=== PATIENT | female | born 1990 | race Caucasian/White ===

== ENCOUNTER 2017-02-06 06:56 | Emergency (ER) | payer OTHER ==
[2017-02-06 07:05] VITALS: BMI 18.7
[2017-02-06 08:38] LABS: URINE APPEARANCE CLOUDY; URINE BILIRUBIN NEGATIVE (NEGATIVE); URINE COLOR YELLOW; URINE GLUCOSE (UA) NEGATIVE (NEGATIVE); URINE KETONE NEGATIVE (NEGATIVE); URINE NITRITE NEGATIVE (NEGATIVE); URINE UROBILINOGEN NEGATIVE E.U./dl (0.2-1.0)
--- NOTE | 2017-02-06 08:38 | PDOC ---
History of Present Illness - General History Source: Patient Exam Limitations: No Limitations - History of Present Illness Initial Comments: 02/06/17 08:40 The patient is a 26-year-old woman, A1, approximately 12 weeks , with a past medical history of sickle cell trait who presents to the emergency department for further evaluation of a vaginal bleeding since this morning. No abdominal trauma. No strenuous activity. Patient states that she woke up this morning to urinate and notes some scant blood in her urine. She confirms that she is experiencing vaginal bleeding rather than hematuria. She has not soaked any pads. No clots. No fever, chills, flank pain, dysuria, urinary frequency/urgency, vaginal discharge. No abdominal pain. No chest pain, lightheadedness, dizziness, sough, shortness of breath, visual changes. She expresses concern, as she was previously expecting and lost it due to a spontaneous . Last menstrual period was 11/09. Ultrasound at bedside one showed a heart rate of 138 bpm. Allergies: No Known Drug Allergies Past Surgical History: None reported Social History: No tobacco, EtOH and recreational drug use. Calender Operator: Dr. Viviana Herbert <Karoline Roque - Last Filed: 02/06/17 10:14> - General History Source: Patient, Old Records Exam Limitations: No Limitations <Leann Stallworth - Last Filed: 02/06/17 10:19> - General Chief Complaint: Vaginal Bleeding Stated Complaint: VAGINAL BLEEING ( 12 WEEKS) Time Seen by Provider: 02/06/17 08:07 Past History <Karoline Roque - Last Filed: 02/06/17 10:14> - Past Medical History Suicide Attempt (Hx): No Other medical history: SICKLE CELL TRAIT - Reproductive History Is Patient Now?: Yes (#): 2 Para: 0 Cervical CA: No Dysfunctional Uterine Bleeding: No Ectopic : No Endometrial CA: No Polycystic Ovaries: No Therapeutic (s) & number: No Spontaneous : 1 - Immunization History Immunization Up to Date: Yes - Psycho/Social/Smoking Cessation Hx Anxiety: No Suicidal Ideation: No Smoking Status: Yes Smoking History: Never smoked Number of Cigarettes Smoked Daily: 20 'Breaking Loose' booklet given: 08/11/13 Hx Alcohol Use: No Drug/Substance Use Hx: No Substance Use Type: None <Leann Stallworth - Last Filed: 02/06/17 10:19> - Past Medical History Allergies/Adverse Reactions: Allergies Allergy/AdvReac Type Severity Reaction Status Date / Time No Known Allergies Allergy Verified 02/06/17 07:05 Home Medications: Ambulatory Orders Cephalexin [Keflex] 500 mg PO BID #14 capsule 02/06/17 Review of Systems - Review of Systems Able to Perform ROS?: Yes Comments:: 02/06/17 08:40 GENERAL/CONSTITUTIONAL: No fever or chills. No weakness. HEAD, EYES, EARS, NOSE AND THROAT: No change in vision. No ear pain or discharge. No sore throat. CARDIOVASCULAR: No chest pain or shortness of breath. RESPIRATORY: No cough, wheezing, or hemoptysis. GASTROINTESTINAL: No nausea, vomiting, diarrhea or constipation. GENITOURINARY: Yes: Vaginal bleeding. No dysuria, frequency, or change in urination. MUSCULOSKELETAL: No joint or muscle swelling or pain. No neck or back pain. SKIN: No rash NEUROLOGIC: No headache, vertigo, loss of consciousness, or change in strength/ sensation. ENDOCRINE: No increased thirst. No abnormal weight change. HEMATOLOGIC/LYMPHATIC: No anemia, easy bleeding, or history of blood clots. ALLERGIC/IMMUNOLOGIC: No hives or skin allergy. <Karoline Roque - Last Filed: 02/06/17 10:14> *Physical Exam - Vital Signs Last Vital Signs Temp Pulse Resp BP Pulse Ox 98.2 F 90 20 98/68 100 02/06/17 07:03 02/06/17 07:03 02/06/17 07:03 02/06/17 07:03 02/06/17 07:03 - Physical Exam Comments: 02/06/17 08:41 GENERAL: Awake, alert, and fully oriented, in no acute distress HEAD: No signs of trauma EYES: PERRLA, EOMI, sclera anicteric, conjunctiva clear ENT: Auricles normal inspection, hearing grossly normal, nares patent, oropharynx clear without exudates. Moist mucosa NECK: Normal ROM, supple, no lymphadenopathy, JVD, or masses LUNGS: Breath sounds equal, clear to auscultation bilaterally. No wheezes, and no crackles HEART: Regular rate and rhythm, normal S1 and S2, no murmurs, rubs or gallops ABDOMEN: Soft, nontender, normoactive bowel sounds. No guarding, no rebound. No masses PELVIC: External os was open. Internal os is closed. No CMT. Small amount of blood in the vaginal vault. EXTREMITIES: Normal range of motion, no edema. No clubbing or cyanosis. No cords, erythema, or tenderness NEUROLOGICAL: Cranial nerves II through XII grossly intact. Normal speech, normal gait <Karoline Roque - Last Filed: 02/06/17 10:14> - Vital Signs Last Vital Signs Temp Pulse Resp BP Pulse Ox 98.2 F 90 20 98/68 100 02/06/17 07:03 02/06/17 07:03 02/06/17 07:03 02/06/17 07:03 02/06/17 07:03 <Leann Stallworth - Last Filed: 02/06/17 10:19> ED Treatment Course - LABORATORY CBC & Chemistry Diagram: 02/06/17 08:46 02/06/17 08:46 - ADDITIONAL ORDERS Additional order review: Laboratory Results 02/06/17 08:17 Urine Color Yellow Urine Appearance Cloudy Urine pH 5.0 D Urine Protein 1+ H Urine Glucose (UA) Negative Urine Ketones Negative Urine Blood 3+ H Urine Nitrite Negative Urine Bilirubin Negative Urine Urobilinogen Negative Ur Leukocyte Esterase 2+ H - RADIOLOGY Radiograph Interpretation: 02/06/17 10:15 EXAM: US/TRANSVAGINAL US PREG Interpreted by Dr. Abby Kerr IMPRESSION: The uterus measures 13.7 x 6.4 x 9.0 cm. A single intrauterine gestation is identified. By ultrasound measurements 13 weeks 0 days. heart rate 142 BPM. Normal quantity amniotic fluid. The right and left ovaries were not visualized There are no adnexal masses. There is no free fluid in the pelvis. <Karoline Roque - Last Filed: 02/06/17 10:14> - LABORATORY CBC & Chemistry Diagram: 02/06/17 08:46 02/06/17 08:46 - RADIOLOGY Radiology Studies Ordered: Category Date Time Status TRANSVAGINAL US PREG [US] Stat Ultrasound 02/06/17 08:07 Ordered <Leann Stallworth - Last Filed: 02/06/17 10:19> Medical Decision Making - Medical Decision Making 02/06/17 09:14 26-year-old female 2 para 0 LMP 11/09/2016 presents the emergency department with vaginal bleeding this morning. She has no cramping or abdominal pain, passage of tissues or clots. Her vital signs are stable. Focused bedside ultrasound shows a live IUP with a heart rate of 138 and positive movement. Differential diagnosis includes but is not limited to: Threatened AB. Plan: 1. Labs 2. Official ultrasound 3. Observe and reevaluate 4. The patient hasn't seen in the ED in the past and has a blood type of O+ therefore will not obtain a type and screen specimen at this visit. 5. If official ultrasound confirms my findings on focused bedside ultrasound, will discharge home with pelvic rest, follow-up with CONSULTING SOFTWARE ENGINEER tomorrow and return to the emergency department if symptoms persist, worsen, or new symptoms arise. <Leann Stallworth - Last Filed: 02/06/17 10:19> *DC/Admit/Observation/Transfer - Attestations Scribe Attestion: 02/06/17 08:42 Documentation prepared by Karoline Roque, acting as certified medical technician assistant for Leann Stallworth MD. <Karoline Roque - Last Filed: 02/06/17 10:14> - Discharge Dispostion Admit: No - Attestations Physician Attestion: 02/06/17 09:17 I, Dr. Leann Stallworth, attest that the scribes documentation that appears above has been prepared under my direction and personally reviewed by me in its entirety. I confirmed that the note above accurately reflects all work, treatment, procedures, and medical decision-making performed by me. <Leann Stallworth - Last Filed: 02/06/17 10:19> Diagnosis at time of Disposition: Threatened - Discharge Dispostion Disposition: HOME Condition at time of disposition: Stable - Prescriptions Prescriptions: Cephalexin [Keflex] 500 mg PO BID #14 capsule - Referrals Referrals: Luis Carlos Claros MD [Primary Care Provider] - - Patient Instructions Printed Discharge Instructions: DI for Threatened , DI for Urinary Tract Infection (UTI) Additional Instructions: You have vaginal bleeding during with a normal ultrasound. This is called a threatened . Please do not place anything in your vagina and exercise pelvic rest. This means no sexual intercourse, vaginal douching, or tampon use until you are cleared to do so by your senior center manager. You also have a urinary tract infection for which you are being treated with Keflex 500 mgtake 1 tablet twice daily for 1 week. Please follow-up with your senior center manager tomorrow and return to the emergency department if your symptoms persist, worsen , or new symptoms arise.
[2017-02-06 08:39] LABS: URINE BLOOD 3+ (NEGATIVE); URINE LEUK ESTERASE 2+ (NEGATIVE); URINE PROTEIN 1+ (NEGATIVE)
[2017-02-06 08:43] LABS: URINE MUCUS RARE; URINE RBC 52 /hpf (0-3); URINE WBC 61 /hpf (3-5)
[2017-02-06 08:57] LABS: BASOPHIL 0.4 % (0-2.0); EOSINOPHIL 1.2 % (0-4.5); MCH 25.2 pg (25.7-33.7); MEAN CELL VOLUME 76.3 fl (80-96); MEAN PLT VOLUME 8.4 fl (7.5-11.1); NEUTROPHILS 78.4 % (42.8-82.8); PLATELET COUNT 326 K/MM3 (134-434); RDW 20.1 % (11.6-15.6); WHITE BLOOD COUNT 11.5 K/mm3 (4.0-10.0)
[2017-02-06 09:17] LABS: COCKROFT - GAULT 126.939; CREATININE 0.6 mg/dL (0.55-1.02)
[2017-02-06] MEDS ORDERED: CEPHALEXIN MONOHYDRATE 500 MG CAPSULE (UD) PO ONE (09:38)
[2017-02-06] MEDS ORDERED: CEPHALEXIN MONOHYDRATE 250 MG CAPSULE (FP) ONE (10:09)
[2017-02-06 10:23] VITALS: BP 119/71; PULSE 71; TEMP 97.9
== END 2017-02-06 10:29 | disposition home or self-care (01) ==
LOC: JER 06:56
DX: O20.0 Threatened abortion (principal); O23.41 Unspecified infection of urinary tract in pregnancy, first trimester; Z3A.13 13 weeks gestation of pregnancy
CPT/HCPCS: 36415; 76817-TC; 80048; 81003; 81015; 84702; 85025; 87086; 99282-25